=== PATIENT | male | born 1970 | race Caucasian/White ===

== ENCOUNTER 2018-10-07 10:08 | Inpatient (IN) | payer OTHER ==
[~2018-10-07] VITALS: Ht 175.3 cm; Wt 71.2 kg
== END 2018-10-08 10:38 | disposition home or self-care (01) | DRG 312 ==
LOC: ER 10:08 → MEDI 15:39
PROC: BW28ZZZ Computerized Tomography (CT Scan) of Head (ICD-10-PCS; principal; 2018-10-07)
PROC: 4A12X4Z Monitoring of Cardiac Electrical Activity, External Approach (ICD-10-PCS; 2018-10-07)
PROC: BW38ZZZ Magnetic Resonance Imaging (MRI) of Head (ICD-10-PCS; 2018-10-08)
DX: R55 Syncope and collapse (principal)
CPT/HCPCS: 70544

== ENCOUNTER 2021-03-01 19:18 | Emergency (ER) | payer OTHER ==
[~2021-03-01] VITALS: Ht 175.3 cm; Wt 70.3 kg
== END 2021-03-01 20:47 | disposition home or self-care (01) ==
LOC: ER 19:18
DX: R55 Syncope and collapse (principal)